=== PATIENT | male | born 1975 | race Caucasian/White ===

== ENCOUNTER 2016-05-28 14:53 | Emergency (ER) | payer SELFPAY ==
--- NOTE | 2016-05-28 16:47 | ED ---
General Adult HPI - General Chief complaint: Urogenital Stated complaint: hernia sent by PCP Time Seen by Provider: 05/28/16 16:34 Source: patient, RN notes reviewed Mode of arrival: ambulatory Limitations: no limitations - History of Present Illness Initial comments: This is a 41-year-old male presents left-sided groin pain 5 days. Patient states his symptoms started on and has progressively gotten worse. Patient states the pain comes and goes and starts gradually. Patient states he has had some night sweats with this pain and some nausea. Patient denies any swelling, erythema, or dysuria. Patient states he has chronic stomach issues so the nausea and vomiting could be from this. 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 Patient states his back pain is not worse. Patient denies any flank pain. This has never happened to the patient before. Patient is not on any medications except for [id number] Prilosec. Patient denies any recent fever, shortness breath, chest pain, abdominal pain, hematochezia, hematemesis, hematuria, diarrhea, change in bowel or bladder function, numbness, tingling, headache, or visual changes, or any other complaints. - Related Data Home Medications Medication Instructions Recorded Confirmed No Known Home Medications [No 05/28/16 05/28/16 Known Home Medications] Allergies Allergy/AdvReac Type Severity Reaction Status Date / Time No Known Allergies Allergy Verified 05/28/16 15:00 Review of Systems ROS Statement: Those systems with pertinent positive or pertinent negative responses have been documented in the HPI. ROS Other: All systems not noted in ROS Statement are negative. Past Medical History Past Medical History: No Reported History History of Any Multi-Drug Resistant Organisms: None Reported Past Surgical History: No Surgical Hx Reported Past Psychological History: No Psychological Hx Reported Smoking Status: Current every day smoker Past Alcohol Use History: Heavy Past Drug Use History: Marijuana General Exam - General Exam Comments Initial Comments: General: The patient is awake and alert, in no distress, and does not appear acutely ill. Neck: The neck is supple, there is no tenderness or JVD. Cardiovascular: There is a regular rate and rhythm. No murmur, rub or gallop is appreciated. Respiratory: Lungs are clear to auscultation, respirations are non-labored, breath sounds are equal. No wheezes, stridor, rales, or rhonchi. Gastrointestinal: Soft, non-distended, non-tender abdomen without masses or organomegaly noted. There is no rebound or guarding present. No CVA tenderness. Bowel sounds are unremarkable. Musculoskeletal: Normal ROM, no tenderness. Strength 5/5. Sensation intact. Pulses equal bilaterally 2+. Neurological: A&O x 3. CN II-XII intact, There are no obvious motor or sensory deficits. Coordination appears grossly intact. Speech is normal. Skin: Skin is warm and dry and no rashes or lesions are noted. Psychiatric: Cooperative, appropriate mood & affect, normal judgment. Limitations: no limitations exam: Present: normal inspection, other (Mild tenderness to palaption in the left inguinal area. No inguninal hernia felt on exam. no inguinal swelling.). Absent: testicular tenderness, urethral discharge, scrotal swelling Course Vital Signs 05/28/16 05/28/16 14:56 19:30 Temperature 97.9 F 98.4 F Pulse Rate 99 80 Respiratory 18 19 Rate Blood Pressure 142/91 133/94 O2 Sat by Pulse 100 97 Oximetry Medical Decision Making - Medical Decision Making This is a 41-year-old male presents left inguinal pain 5 days. On physical exam there is mild tenderness to palpation of the left inguinal area but no inguinal swelling, erythema or evidence of hernia on exam. Patient has no abdominal tenderness to palpation, abdomen is soft, nontender nondistended. A left groin ultrasound was done and reviewed and was negative for any hernia. The ultrasound did show lymph nodes in that area. I discussed results with patient. I discussed [id number] Tylenol or Motrin as needed for pain. Discussed close follow-up with primary care physician in the next 1-2 days. I discussed return parameters. Discussed ice or heat to the area. Discussed that patient should follow up with PCP in one to 2 days or return to the [facility] for any worsening symptoms or for any further concerns. Patient was receptive to this plan and patient will be discharged home. Disposition Clinical Impression: Groin pain Disposition: HOME SELF-CARE Condition: Good Instructions: Groin Pain (ED) Additional Instructions: Please use Tylenol or Motrin as the referring pain. Please use ice or heat to the area. Please follow-up with PCP in one to 2 days or return to the [facility] for any worsening symptoms or for any further concerns. Referrals: Gracy Clark NPC [Primary Care Provider] - 1-2 days Time of Disposition: 19:09
[2016-05-28 19:32] VITALS: BP 133/94; PULSE 80; RESP 19; TEMP 98.4
--- NOTE | 2016-05-30 13:47 | US ---
EXAMINATION TYPE: US groin extremity LT DATE OF EXAM: 05/28/2016 6:01 PM COMPARISON: NONE CLINICAL HISTORY: Pain in left groin x4 days. Patient does not feel any lumps TECHNOLOGIST IMPRESSION/RADIOGRAPHIC FINDINGS: Multiple probable lymph nodes visualized, largest geovani suring 1.3 x 0.5 x 1.3 cm. This is not enlarged in short axis and the lymph nodes maintain fatty carmen . No other abnormalities noted IMPRESSION: Multiple nonenlarged interstitial inguinal lymph nodes with no other sonographic abnorma lity.
== END 2016-05-28 19:31 | disposition home or self-care (01) ==
LOC: EC 14:53
DX: R10.32 Left lower quadrant pain (principal); F17.200 Nicotine dependence, unspecified, uncomplicated
CPT/HCPCS: 99283